=== PATIENT | female | born 1985 | race Asian ===

== ENCOUNTER 2017-05-17 00:20 | Inpatient (IN) | payer MEDICAID, OTHER ==
[~2017-05-17 00:20] MED LIST: DEPO150I IM; NAPR550 PO; OXYC-360 PO; PREN0.01 PO; SENN1TAB11 PO
--- NOTE | 2017-05-17 01:17 | PD ---
HPI Chief Complaint Contractions Travel History International Travel<30 Days: No Contact w/Intl Traveler<30Days: No Known Affected Area: No History of Present Illness HPI 31-year-old 001, IUP at 37.4 care complicated by resolved posterior placenta previa, prior section, parasellar nonimmune, history of thalassemia Patient presents complaining of the onset of painful contractions about 4 AM yesterday she reports they have increased in intensity and frequency throughout the day and are now every few minutes. She reports some light spotting. She denies any vaginal bleeding or leaking of fluid. She reports good movement. Of note, she went to the office today because of the spotting and was checked but she is not sure what her vaginal exam was at that time. Weeks Gestation: 37 Para: 1 : 2 History Past Medical History Medical History: Denies Significant Hx Obstetric History Obstetric History 001, full-term delivery 1 Denies any abnormal Pap smears or sexual transmitted infections Past Surgical History Narrative Surgical delivery Family History Family History: Negative Social History Alcohol Use: No Tobacco Use: No Substance Abuse: No Allergies-Medications (Allergen,Severity, Reaction): Coded Allergies: No Known Allergies (Unverified , 04/22/15) Home Meds Active Scripts Medroxyprogesterone Acetate (Depo-Provera Contraceptive) 150 Mg/Ml Susp, 150 MG IM [id number], #1 3 Refills Prov:Mitzy Paulino MD 11/27/11 Reported Medications Oxycodone/Acetaminophen (Percocet) 5 Mg/325 Mg Tab, 1 - 2 TAB PO Q4-6HPRN, #40 FOR PAIN 09/22/11 Docusate Sod/Senna (Senna Plus 8.6-50 mg) 1 Tab Tab, 1 TAB PO BIDPRN, #60 09/20/11 Naproxen Sodium (Anaprox Ds) 550 Mg Tab, 550 MG PO BIDPRN, #40 09/20/11 Multivit/Min/Fol Ac/Iron/Pren ( Vit ( Plus)) Tab, 1 TAB PO DAILY, #30 09/19/11 Review of Systems Except as stated in HPI: all other systems reviewed are Neg Gastrointestinal: Abdominal Pain Physical Exam Narrative GENERAL: Well-nourished, well-developed patient. SKIN: Warm and dry. HEAD: Normocephalic and atraumatic. EYES: No scleral icterus. No injection or drainage. ENT: No nasal drainage noted. Mucous membranes pink. Airway patent. NECK: Supple, trachea midline. No JVD. CARDIOVASCULAR: Regular rate and rhythm without murmurs, gallops, or rubs. RESPIRATORY: Breath sounds equal bilaterally. No accessory muscle use. BREASTS: Deferred ABDOMEN/GI: Abdomen soft, non-tender, bowel sounds present, no rebound, no guarding Gravid GENITOURINARY: External Genitalia: intact and normal in appearance and normal BUS glands. Small amount of dark spotting noted with exam. No active bleeding noted. Grossly normal rugae. No cervical or vaginal masses. SVE 3-4/90/-1 with bulging bag of water. SVE changed to 5/90/-1 FHT's: Baseline heart rate 140 with moderate long-term variability, good accelerations, no decelerations, category 1 FHT are tracing/reactive NST EXTREMITIES: No cyanosis or edema. BACK: Nontender without obvious deformity. No CVA tenderness. NEUROLOGICAL: Awake and alert. Motor and sensory grossly within normal limits. Five out of 5 muscle strength in all muscle groups. Normal speech. Psychiatric: Grossly normal memory and affect Musculoskeletal grossly normal ROM and, gait, muscle strength MDM Plan Assessment/plan: 1. IUP at 37.4 2. Labor: Patient made cervical change during the course of observation, will admit to Dr. Wilson 3. History of prior delivery 1: Patient desires a repeat delivery, she was counseled that based on previous indication for she could safely attempt a but she has declined. Risks, benefits, and alternatives with discussed with the patient including but not limited to pain, infection, bleeding, bleeding that might require blood transfusion or hysterectomy, need for repeat operation, injury to other organs like the bladder , bowels, nerves, vessels, injury to the baby, wound infection and breakdown, and other possible complications. The patient had the opportunity to ask questions and consent was obtained through a certified rehabilitation counselor service. 4. Resolved posterior placenta previa 5. well-being: Reassuring testing with reactive NST and category 1 heart rate tracing. FHR is reassuring and appropriate for gestational age. 6. Varicella nonimmune Ale Child MD May 17, 2017 01:17
[2017-05-17] MEDS ORDERED: TERBUTALINE INJ 1 MG/ML AMP ONE (01:46)
[2017-05-17] MEDS ORDERED: ACETAMINOPHEN 1000 MG/100 ML 100 ML IV ONE ×2 (01:53→03:15)
--- NOTE | 2017-05-17 01:53 | HHI.HP ---
History & Physical H&P Patient Name: Terri Carroll Unit Number: [id number] Date of : 1985 Patient Status: Admitted Inpatient Attending Doctor: Gricel Wilson MD HPI HPI Chief Complaint Contractions Travel History International Travel<30 Days: No Contact w/Intl Traveler<30Days: No Known Affected Area: No History of Present Illness HPI 31-year-old 001, IUP at 37.4 care complicated by resolved posterior placenta previa, prior section, parasellar nonimmune, history of thalassemia Patient presents complaining of the onset of painful contractions about 4 AM yesterday she reports they have increased in intensity and frequency throughout the day and are now every few minutes. She reports some light spotting. She denies any vaginal bleeding or leaking of fluid. She reports good movement. Of note, she went to the office today because of the spotting and was checked but she is not sure what her vaginal exam was at that time. Weeks Gestation: 37 Para: 1 : 2 History (Limited) History Past Medical History Medical History: Denies Significant Hx Obstetric History Obstetric History 001, full-term delivery 1 Denies any abnormal Pap smears or sexual transmitted infections Past Surgical History Narrative Surgical delivery Family History Family History: Negative Social History Alcohol Use: No Tobacco Use: No Substance Abuse: No Allergies-Medications Allergies-Medications (Allergen,Severity, Reaction): Coded Allergies: No Known Allergies (Unverified , 04/22/15) Home Meds Active Scripts Medroxyprogesterone Acetate (Depo-Provera Contraceptive) 150 Mg/Ml Susp, 150 MG IM [id number], #1 3 Refills Prov:Mitzy Paulino MD 11/27/11 Reported Medications Oxycodone/Acetaminophen (Percocet) 5 Mg/325 Mg Tab, 1 - 2 TAB PO Q4-6HPRN, #40 FOR PAIN 09/22/11 Docusate Sod/Senna (Senna Plus 8.6-50 mg) 1 Tab Tab, 1 TAB PO BIDPRN, #60 09/20/11 Naproxen Sodium (Anaprox Ds) 550 Mg Tab, 550 MG PO BIDPRN, #40 09/20/11 Multivit/Min/Fol Ac/Iron/Pren ( Vit ( Plus)) Tab, 1 TAB PO DAILY, #30 09/19/11 ROS Review of Systems Except as stated in HPI: all other systems reviewed are Neg Gastrointestinal: Abdominal Pain Physical Exam Physical Exam Narrative GENERAL: Well-nourished, well-developed patient. SKIN: Warm and dry. HEAD: Normocephalic and atraumatic. EYES: No scleral icterus. No injection or drainage. ENT: No nasal drainage noted. Mucous membranes pink. Airway patent. NECK: Supple, trachea midline. No JVD. CARDIOVASCULAR: Regular rate and rhythm without murmurs, gallops, or rubs. RESPIRATORY: Breath sounds equal bilaterally. No accessory muscle use. BREASTS: Deferred ABDOMEN/GI: Abdomen soft, non-tender, bowel sounds present, no rebound, no guarding Gravid GENITOURINARY: External Genitalia: intact and normal in appearance and normal BUS glands. Small amount of dark spotting noted with exam. No active bleeding noted. Grossly normal rugae. No cervical or vaginal masses. SVE 3-4/90/-1 with bulging bag of water. SVE changed to 5/90/-1 FHT's: Baseline heart rate 140 with moderate long-term variability, good accelerations, no decelerations, category 1 FHT are tracing/reactive NST EXTREMITIES: No cyanosis or edema. BACK: Nontender without obvious deformity. No CVA tenderness. NEUROLOGICAL: Awake and alert. Motor and sensory grossly within normal limits. Five out of 5 muscle strength in all muscle groups. Normal speech. Psychiatric: Grossly normal memory and affect Musculoskeletal grossly normal ROM and, gait, muscle strength Data Data [facility] Plan Assessment/plan: 1. IUP at 37.4 2. Labor: Patient made cervical change during the course of observation, will admit to Dr. Wilson 3. History of prior delivery 1: Patient desires a repeat delivery, she was counseled that based on previous indication for she could safely attempt a but she has declined. Risks, benefits, and alternatives with discussed with the patient including but not limited to pain, infection, bleeding, bleeding that might require blood transfusion or hysterectomy, need for repeat operation, injury to other organs like the bladder , bowels, nerves, vessels, injury to the baby, wound infection and breakdown, and other possible complications. The patient had the opportunity to ask questions and consent was obtained through a fur remodeler service. 4. Resolved posterior placenta previa 5. well-being: Reassuring testing with reactive NST and category 1 heart rate tracing. FHR is reassuring and appropriate for gestational age. 6. Varicella nonimmune Ale Child MD May 17, 2017 01:17 Ale Child MD May 17, 2017 01:53
[2017-05-17] MEDS ORDERED: LACTATED RINGER'S 1000 ML INJ 1,000 ML IV ONE ×3 (01:54→03:35)
[2017-05-17 02:00] LABS: AUTOMATED NEUTROPHIL # 13.7 TH/MM3 (1.8-7.7); BASOPHIL # 0.1 TH/MM3 (0-0.2); BASOPHIL % 0.5 % (0.0-2.0); EOSINOPHIL % 0.2 % (0.0-4.0); HEMATOCRIT 32.5 % (35.0-46.0); HEMO FLAGS DIFF FINAL; LYMPH % 9.4 % (9.0-44.0); LYMPHOCYTE # 1.5 TH/MM3 (1.0-4.8); MEAN CELL VOLUME 76.6 FL (80.0-100.0); MEAN CORPUSCULAR HGB CONC 32.7 % (32.0-36.0); MONO % 3.9 % (0.0-8.0); PLATELET COUNT 221 TH/MM3 (150-450); RED BLOOD COUNT 4.24 MIL/MM3 (4.00-5.30); RED CELL DISTRIBUTION WIDTH 17.2 % (11.6-17.2)
[2017-05-17] MEDS ORDERED: LACTATED RINGER'S 1000 ML INJ 1,000 ML IV SCH (02:24)
[2017-05-17] MEDS ORDERED: METHYLERGONOVINE MALEATE 0.2 MG/ML VIAL ONE (02:31)
[2017-05-17 02:51] LABS: BLOOD GAS BASE EXCESS -0.2 mmol/L (-2-2); BLOOD GAS O2 HGB SATURATION 11 % (90-100); CORD BLOOD GAS HCO3 26 mmol/L (21-29); CORD BLOOD GAS PCO2 60 mmHG (34-78); CORD BLOOD GAS PH 7.26 (7.14-7.42); CORD BLOOD GAS PO2 12 mmHG (3.0-40.0)
[2017-05-17 02:52] LABS: DRAW SITE CORD BLOOD; STAT YES
[2017-05-17] MEDS ORDERED: ceFAZolin 2 GM PREMIX 50 ML IV SCH (03:00)
[2017-05-17] MEDS ORDERED: SODIUM CHLORIDE 0.9% FLUSH 10 ML FLUSH IV FLUSH PRN (03:15)
[2017-05-17] MEDS ORDERED: ZOLPIDEM TARTRATE 5 MG TAB PO PRN (03:15)
[2017-05-17] MEDS ORDERED: ONDANSETRON HCL 4 MG/2 ML VIAL IV PUSH PRN (03:15)
[2017-05-17] MEDS ORDERED: SIMETHICONE 80 MG CHEWABLE TAB PO PRN (03:15)
[2017-05-17] MEDS ORDERED: DOCUSATE SODIUM 50 MG/SENNA 8.6 MG TAB PO PRN (03:15)
[2017-05-17] MEDS ORDERED: OXYTOCIN 30 UNITS-500ML PREMIX 500 ML IV ONE (03:15)
[2017-05-17] MEDS ORDERED: oxyCODONE/ACETAMINOPHEN 5 MG/325 MG TAB PO PRN ×2 (03:15)
--- NOTE | 2017-05-17 03:18 | PD.OB.DELI ---
Procedure Note Section Procedure Pre Op Diagnosis: (1) prior cd (2) labor Post Op Diagnosis: (1) delivery delivered Performed by Gricel Wilson Procedure: Repeat Low Transverse Sec (and scar revision) Previous condition: None Informed consent obtained: For anesthesia, For procedure Confirmed correct: Patient, Procedure, Site, Time-out taken Anesthesia: Spinal Medication prior to procedure: As documented in eMAR Monitoring during procedure: Blood pressure monitoring, Pulse oximetry Urinary catheter: Inserted using sterile technique, To dependent drainage, ml urine output (100) Sterile preparation: With 2% chlorexidine (Hibiclens) Position: Supine with wedge to right side, Supine with safety belt applied Operative Features Skin Incision: Pfannenstiel Uterine Incision: Low transverse w/knife / blunt ext Membranes Ruptured: Amount of liquid (mod), Appearance of fluid (cl) Presentation: Occiput anterior Delivery date: May 17, 2017 Delivery time: 02:27 Delivery of : Uneventful Infant: Male One Minute : 8 Five Minute : 9 Weight: 7 lb 6 oz Status of infant: Viable, Cord blood, Umbilical cord, Nursery present Placenta delivered: Intact Medications: Antibiotics, Oxytocin, Other (methergine dose given x 1 for poor uterine tone) Estimated blood loss: 500ml Procedure tolerated: Well Maternal Condition: Stable Condition: Stable Procedure in detail After review of informed consent, pt was taken to the OR. [place] already in place, epidural redosed. A scalpel was used to perform a scar revision. Pfannenstiel incision was then made with the scalpel and carried down to the underlying layer of fascia; subcutaneous layer and fascial layers were scarred together. There was also scarring of fascia and rectus muscle. Fascia was incised sharply in the midline and extended bilaterally with kumar scissors. The superior edge of the fascia was grasped with saira clamps, elevated and the rectus muscles were dissected off sharply. The same was repeated inferiorly. The peritoneum was entered bluntly and extended bluntly after inspection. There were few filmy adhesions of lower uterine segment. Normal tubes and ovaries. A Low transverse uterine incision was made with the scalpel and extended bluntly. The head was delivered with gentle fundal pressure and the body readily followed. Baby was bulb suctioned and handed of to awaiting nursery team. IV infusion of pitocin was started immediately. The uterus had poor tone, one dose of Methergine was given. Gentle cord traction and uterine massage was used to deliver the placenta. The uterus was exteriorized and cleared of all clots and debris with moist lap sponges. The hysterotomy was closed in 2 layers with #1chromic, running locked followed by an imbricated layer. The posterior cul de sac was irrigated and suctioned. Good hemostasis was noted. The uterus was returned to the abdomen. The peritoneum closed w 2-0 running stitch. The fascia closed with #1 vicryl running. The subcutaneous layer was undermined w the bovie for good skin approximation; irrigated and hemostasis obtained with the bovie. The skin was closed with 3-0 monocryl in a subcuticular fashion. Steristrips and pressure dressing applied. Counts correct x 3. No complications. PT taken to pacu in stable condition. Gricel Wilson MD May 17, 2017 03:18
[2017-05-17] MEDS ORDERED: CITRIC ACID-SODIUM CITRATE LIQ 30 ML UDC PO SCH (03:30)
[2017-05-17 04:09] LABS: BACTERIA, URINE RARE /hpf; BLOOD, URINE MOD (NEG); COMMENT (UR) CULT NOT INDICATED; CULTURE IF INDICATED CULT NOT INDICATED; GLUCOSE,URINE NEG (NEG); KETONE, URINE 10 mg/dL (NEG); MUCUS URINE FEW /lpf (OCC); NITRITE,URINE NEG (NEG); PH, URINE 6.5 (5.0-8.5); SQUAMOUS EPITHELIAL CELL URINE 4 /hpf (0-5); URINE COLOR YELLOW (YELLW/STRAW)
[2017-05-17] MEDS ORDERED: OXYTOCIN 30 UNITS-500ML PREMIX 500 ML ONE (04:28)
[2017-05-17] MEDS ORDERED: EPIDURAL-NALOXONE HCL 0.4 MG/ML AMP IV PUSH PRN (06:00)
[2017-05-17] MEDS ORDERED: EPIDURAL-NO SYSTEMIC NARCOTICS PRN (06:00)
[2017-05-17] MEDS ORDERED: EPIDURAL-DO NOT ADMINISTER ANTICOAGULANTS PRN (06:00)
[2017-05-17] MEDS ORDERED: EPIDURAL-DIPHENHYDRAMINE HCL 50 MG/ML VIAL IV PUSH PRN (06:00)
[2017-05-17] MEDS ORDERED: EPIDURAL-DIPHENHYDRAMINE HCL 50 MG CAP PO PRN (06:00)
[2017-05-17] MEDS: SODIUM CHLORIDE 0.9% FLUSH 10 ML FLUSH IV FLUSH SCH (09:00)
[2017-05-17] MEDS: LACTATED RINGER'S 1000 ML INJ 1,000 ML IV SCH ×2 (09:00→18:45)
[2017-05-17] MEDS: ACETAMINOPHEN 1000 MG/100 ML VIAL IV SCH ×2 (10:05→18:26)
[2017-05-17] MEDS ORDERED: MORPHINE SULFATE PF 5 MG/10 ML VIAL EPIDURAL ONE (12:00)
[2017-05-17] MEDS ORDERED: OXYTOCIN 10 UNIT/ML AMP IV ONE (12:00)
[2017-05-17] MEDS ORDERED: ONDANSETRON HCL 4 MG/2 ML VIAL IV PUSH ONE (12:00)
[2017-05-17] MEDS ORDERED: LACTATED RINGER'S 1000 ML INJ 2,000 ML IV ONE (12:00)
[2017-05-17] MEDS ORDERED: PHENYLEPH/NS 1000 MCG/10 ML SYR IV ONE (12:00)
[2017-05-17] MEDS ORDERED: OXYTOCIN 30 UNITS-500ML PREMIX 500 ML IV PRN (13:15)
--- NOTE | 2017-05-17 15:23 | HHI.OB ---
Subjective Post Operative Day: 1 Remarks POD#1; Stable ,doing well Objective Result Diagram: 05/17/17 0125 Objective Remarks GENERAL: Well-nourished, well-developed patient. CARDIOVASCULAR: Regular rate and rhythm without murmurs, gallops, or rubs. RESPIRATORY: Breath sounds equal bilaterally. No accessory muscle use. ABDOMEN/GI: Abdomen soft, non-tender, bowel sounds present. Incision: Clean, dry and intact. Fundus: Firm, non-tender at umbilicus. GENITOURINARY: Light to moderate bleeding. EXTREMITIES: No cyanosis or edema, non-tender, without signs of DVT. Medications and IVs Current Medications Medications (Trade) Dose Ordered Sig/Ambrosio Route Start Time Stop Time Status Last Admin Lactated Ringer's 1,000 ml @ 100 mls/hr Q10H IV 05/17/17 08:09 05/18/17 04:08 05/17/17 09:00 Oxytocin 500 ml @ 100 mls/hr UNSCH X1 PRN IV 05/17/17 13:15 05/18/17 13:14 05/17/17 05:00 (NS Flush) 2 ml BID IV FLUSH 05/17/17 09:00 (NS Flush) 2 ml UNSCH PRN IV FLUSH 05/17/17 03:15 (Mylicon Chew) 80 mg QID PRN PO 05/17/17 03:15 (Motrin) 600 mg Q6H PRN PO 05/17/17 03:15 (Percocet 5-325 Mg) 1 tab Q4H PRN PO 05/17/17 03:15 (Percocet 5-325 Mg) 2 tab Q4H PRN PO 05/17/17 03:15 (Gisela-Colace) 2 tab Q12H PRN PO 05/17/17 03:15 (Ambien) 5 mg HS PRN PO 05/17/17 03:15 (M-M-R Ii Inj) 0.5 ml ONCE ONCE SQ 05/18/17 16:00 05/18/17 16:01 (Boostrix Inj) 0.5 ml ONCE ONCE IM 05/18/17 16:00 05/18/17 16:01 (Zofran Inj) 4 mg Q6H PRN IV PUSH 05/17/17 03:15 Miscellaneous Information NO SYSTEMIC NARCOTICS TO BE GIVEN FO... UNSCH PRN .XX 05/17/17 06:00 05/18/17 05:59 (Narcan Inj) 0.4 mg UNSCH PRN IV PUSH 05/17/17 06:00 05/18/17 05:59 (Benadryl Inj) 25 mg Q6H PRN IV PUSH 05/17/17 06:00 05/18/17 05:59 (Benadryl) 50 mg Q6H PRN PO 05/17/17 06:00 05/18/17 05:59 Miscellaneous Information ALL NURSING DEPARTMENTS UNSCH PRN .XX 05/17/17 06:00 05/18/17 05:59 (Ofirmev 1000 Mg/ 100 ml Inj) 1,000 mg Q8H IV 05/17/17 10:00 05/17/17 18:01 05/17/17 10:05 Assessment/Plan Assessment and Plan POD#1, stable, advance care per protocal Discharge Planning Routine Attending Attestation seen by Pelon Max MD May 17, 2017 15:23
[2017-05-17] MEDS: IBUPROFEN 600 MG TAB PO PRN (16:12)
[2017-05-18] MEDS: IBUPROFEN 600 MG TAB PO PRN ×3 (00:26→16:02)
[2017-05-18 06:56] LABS: AUTOMATED NEUTROPHIL # 7.4 TH/MM3 (1.8-7.7); BASOPHIL % 0.3 % (0.0-2.0); EOSINOPHIL # 0.1 TH/MM3 (0-0.4); EOSINOPHIL % 0.9 % (0.0-4.0); HEMATOCRIT 27.7 % (35.0-46.0); HEMO FLAGS DIFF FINAL; LYMPH % 17.2 % (9.0-44.0); LYMPHOCYTE # 1.7 TH/MM3 (1.0-4.8); MEAN CELL VOLUME 76.8 FL (80.0-100.0); MEAN CORPUSCULAR HEMOGLOBIN 24.9 PG (27.0-34.0); MEAN CORPUSCULAR HGB CONC 32.4 % (32.0-36.0); MONO % 4.9 % (0.0-8.0); NEUT % 76.7 % (16.0-70.0); PLATELET COUNT 209 TH/MM3 (150-450); RED BLOOD COUNT 3.61 MIL/MM3 (4.00-5.30); RED CELL DISTRIBUTION WIDTH 17.2 % (11.6-17.2); WHITE BLOOD COUNT 9.7 TH/MM3 (4.0-11.0)
--- NOTE | 2017-05-18 08:14 | HHI.OB ---
Subjective Post Operative Day: 2 Remarks POD#2, Stable Objective Result Diagram: 05/18/17 0620 Objective Remarks GENERAL: Well-nourished, well-developed patient. CARDIOVASCULAR: Regular rate and rhythm without murmurs, gallops, or rubs. RESPIRATORY: Breath sounds equal bilaterally. No accessory muscle use. ABDOMEN/GI: Abdomen soft, non-tender, bowel sounds present. Incision: Clean, dry and intact. Fundus: Firm, non-tender at umbilicus. GENITOURINARY: Light to moderate bleeding. EXTREMITIES: No cyanosis or edema, non-tender, without signs of DVT. Medications and IVs Current Medications Medications (Trade) Dose Ordered Sig/Ambrosio Route Start Time Stop Time Status Last Admin Oxytocin 500 ml @ 100 mls/hr UNSCH X1 PRN IV 05/17/17 13:15 05/18/17 13:14 05/17/17 05:00 (NS Flush) 2 ml BID IV FLUSH 05/17/17 09:00 (NS Flush) 2 ml UNSCH PRN IV FLUSH 05/17/17 03:15 (Mylicon Chew) 80 mg QID PRN PO 05/17/17 03:15 (Motrin) 600 mg Q6H PRN PO 05/17/17 03:15 05/18/17 00:26 (Percocet 5-325 Mg) 1 tab Q4H PRN PO 05/17/17 03:15 (Percocet 5-325 Mg) 2 tab Q4H PRN PO 05/17/17 03:15 (Gisela-Colace) 2 tab Q12H PRN PO 05/17/17 03:15 (Ambien) 5 mg HS PRN PO 05/17/17 03:15 (M-M-R Ii Inj) 0.5 ml ONCE ONCE SQ 05/18/17 16:00 05/18/17 16:01 (Boostrix Inj) 0.5 ml ONCE ONCE IM 05/18/17 16:00 05/18/17 16:01 (Zofran Inj) 4 mg Q6H PRN IV PUSH 05/17/17 03:15 Assessment/Plan Assessment and Plan POD#2, stable,consider discharge POD#3 Discharge Planning Routine Attending Attestation seen by Pelon Max MD May 18, 2017 08:14
[2017-05-18] MEDS: SODIUM CHLORIDE 0.9% FLUSH 10 ML FLUSH IV FLUSH SCH (09:00)
[2017-05-18] MEDS ORDERED: DIPHTH/TETANUS/ACEL PERTUSSIS (BOOSTER) 0.5 ML VIAL/PFS IM ONE (16:00)
[2017-05-18] MEDS ORDERED: MEASLES, MUMPS, RUBELLA VACCINE 0.5 ML VIAL SQ ONE (16:00)
[2017-05-19] MEDS: IBUPROFEN 600 MG TAB PO PRN ×3 (00:45→15:01)
[2017-05-19] MEDS: SODIUM CHLORIDE 0.9% FLUSH 10 ML FLUSH IV FLUSH SCH (07:22)
--- NOTE | 2017-05-19 10:35 | HHI.OB ---
Subjective Post Operative Day: 3 Remarks POD#2/3, Doing well, no c/o, stable for D/C Objective Result Diagram: 05/18/17 0620 Objective Remarks GENERAL: Well-nourished, well-developed patient. CARDIOVASCULAR: Regular rate and rhythm without murmurs, gallops, or rubs. RESPIRATORY: Breath sounds equal bilaterally. No accessory muscle use. ABDOMEN/GI: Abdomen soft, non-tender, bowel sounds present. Incision: Clean, dry and intact. Fundus: Firm, non-tender at umbilicus. GENITOURINARY: Light to moderate bleeding. EXTREMITIES: No cyanosis or edema, non-tender, without signs of DVT. Medications and IVs Current Medications Medications (Trade) Dose Ordered Sig/Ambrosio Route Start Time Stop Time Status Last Admin (NS Flush) 2 ml BID IV FLUSH 05/17/17 09:00 (NS Flush) 2 ml UNSCH PRN IV FLUSH 05/17/17 03:15 (Mylicon Chew) 80 mg QID PRN PO 05/17/17 03:15 (Motrin) 600 mg Q6H PRN PO 05/17/17 03:15 05/19/17 07:51 (Percocet 5-325 Mg) 1 tab Q4H PRN PO 05/17/17 03:15 05/19/17 07:51 (Percocet 5-325 Mg) 2 tab Q4H PRN PO 05/17/17 03:15 05/19/17 00:45 (Gisela-Colace) 2 tab Q12H PRN PO 05/17/17 03:15 05/18/17 08:27 (Ambien) 5 mg HS PRN PO 05/17/17 03:15 (Zofran Inj) 4 mg Q6H PRN IV PUSH 05/17/17 03:15 Assessment/Plan Assessment and Plan POD#3, stable, discharge Discharge Planning Routine Attending Attestation seen by Pelon Mxa MD May 19, 2017 10:35
--- NOTE | 2017-05-19 10:36 | HHI.DS ---
Admission Date May 17, 2017 at 01:34 Admitting Diagnosis Diagnosis: Delivery Date: May 17, 2017 : Repeat : Male Brief History 31-year-old 001, IUP at 37.4 care complicated by resolved posterior placenta previa, prior section, parasellar nonimmune, history of thalassemia Patient presents complaining of the onset of painful contractions about 4 AM yesterday she reports they have increased in intensity and frequency throughout the day and are now every few minutes. She reports some light spotting. She denies any vaginal bleeding or leaking of fluid. She reports good movement. Of note, she went to the office today because of the spotting and was checked but she is not sure what her vaginal exam was at that time. Pt Condition on Discharge: Good Discharge Disposition: Discharge Home Discharge Instructions Diet Instructions: As Tolerated, No Restrictions Activities You Can Perform: Shower Only-No Bath Activities to Avoid: Prolonged Standing, Strenuous Activity, Driving, Sexual Activity Pelon Ferraro MD May 19, 2017 10:36
[2017-05-19] MEDS ORDERED: IBUP-232 PO (10:40)
[2017-05-19] MEDS ORDERED: OXYC1TAB63 PO (10:40)
== END 2017-05-19 15:07 | disposition home or self-care (01) | DRG 766 ==
LOC: HOBED 00:20 → H2EB 01:34 → H1EA 05:24
PROVIDERS: ADMIT Obstetrics & Gynecology; ATTEND Obstetrics & Gynecology
PROC: 10D00Z1 Extraction of Products of Conception, Low, Open Approach (ICD-10-PCS; principal; 2017-05-17)
DX: O34.211 Maternal care for low transverse scar from previous cesarean delivery (principal); D56.9 Thalassemia, unspecified; Z37.0 Single live birth; Z3A.37 37 weeks gestation of pregnancy; O99.02 Anemia complicating childbirth
CPT/HCPCS: 59025; 81001; 82805; 85025; 86850; 86900; 86901; 90715; J0131; J2210; J2274; J2370; J2405; J2590; J3105; J7120